=== PATIENT | female | born 1960 | race Caucasian/White ===

== ENCOUNTER 2017-03-10 12:23 | Inpatient (IN) ==
[2017-03-10] MEDS ORDERED: 0.9 % Sodium Chloride 1,000 ML IVC ONE ×2 (12:39→14:31)
[2017-03-10] MEDS ORDERED: Ondansetron 4 MG/2 ML VIAL IVP ONE ×2 (12:39→14:32)
[2017-03-10 12:51] LABS: Basophils # 0.1 K/mcL (0.0-0.2); Basophils % 0.4 %; Eosinophils % 0.1 %; Hematocrit 52.5 % (35.3-44.9); Hemoglobin 17.8 g/dL (11.5-15.4); Immature Granulocytes % 0.9 % (0-4); Mean Corpuscular HGB Conc 33.9 g/dL (31.6-35.5); Mean Corpuscular Volume 94.3 fL (83.0-100.0); Mean Platelet Volume 9.4 fL (9.4-12.4); Monocytes # 2.9 K/mcL (0.0-1.3); Monocytes % 11.8 %; Neutrophils # 20.4 K/mcL (1.6-8.9); Platelet Count 387 K/mcL (140-400); Red Blood Count 5.57 M/mcL (3.82-4.97); Red Cell Distribution Width 12.7 % (11.5-14.5); Segmented Neutrophils % 82.8 %
[2017-03-10 12:58] LABS: Prothrombin Time 10.5 Seconds (9.4-12.1)
[2017-03-10 13:06] LABS: Alanine Aminotransferase 20 Units/L (0-55); Albumin 3.9 g/dL (3.5-5.0); Albumin/Globulin Ratio 1.3 (1.1-2.2); Alkaline Phosphatase 97 Units/L (38-126); Aspartate Amino Transferase 21 Units/L (5-34); BUN/Creatinine Ratio 17 (6-26); Bilirubin,Total 0.7 mg/dL (0.2-1.2); Blood Urea Nitrogen 15 mg/dL (7-20); Calcium 10.6 mg/dL (8.6-10.8); Carbon Dioxide 24 mEq/L (19-29); Chloride 106 mEq/L (98-109); Globulin 3.1 g/dL (2.4-3.5); Glucose 147 mg/dL (70-99); Lipase 18 Units/L (8-78); Osmolality,Calculated 294 (280-300); Potassium 4.7 mEq/L (3.5-4.5); Sodium 140 mEq/L (136-145); eGFR For African Americans > 60 (> 60); eGFR For Non-African Americans > 60 (> 60)
--- NOTE | 2017-03-10 13:40 | Emergency Department Note ---
Disposition Clinical Impression: Abdominal pain Disposition: Admitted As Inpatient Referrals: NO,PCP [Primary Care Provider] - Forms: Work/School Release, ED Satisfaction Letter Abdominal Pain HPI - General Chief Complaint: ED Abdominal Pain Stated Complaint: ABD pain/GI bleed/N/V Time Seen by Provider: 03/10/17 12:26 Source: patient Nursing Notes Reviewed: Yes Vital Signs Reviewed: Yes - History of Present Illness HPI Narrative: Patient complains of abdominal pain has been going on for a few days. Patient also notes some blood from her stool. Patient states she does have a history of ischemic colitis and was diagnosed about a year ago. Patient states she has has cramping diffuse pain. Patient denies fever or chills denies shortness of breath. Patient denies numbness and tingling associated. Patient denies diarrhea. Pain Scale: 9 - Related Data Home Medications Medication Instructions Recorded Confirmed Atorvastatin [Lipitor] 10 mg PO QPM 06/20/16 07/24/16 Cyclobenzaprine [Flexeril] 10 tab PO BID PRN 06/20/16 07/24/16 Levothyroxine [Synthroid] 50 mcg PO QPM 06/20/16 07/24/16 Metoprolol XL (24 HR) Succ [Toprol 12.5 mg PO QPM 06/20/16 07/24/16 Xl] OxyCODONE/APAP 5/325 [Percocet 1 tab PO QPM PRN 06/20/16 07/24/16 5/325 MG] Pregabalin [Lyrica] 75 mg PO QPM 06/20/16 07/24/16 Ranitidine HCl [Heartburn Relief] 150 mg PO QPM 06/20/16 07/24/16 SUMAtriptan [Imitrex] 50 mg PO DAILY PRN 06/20/16 07/24/16 Aspirin [Lo-Dose Aspirin EC] 81 mg PO QPM 07/24/16 07/24/16 Calcium Carbonate [Calcium] 500 mg PO QAM 07/24/16 07/24/16 Carvedilol [Coreg] 3.125 mg PO QPM 07/24/16 07/24/16 Ergocalciferol (VITAMIN D2) 50,000 unit PO QWEEK 07/24/16 07/24/16 [Vitamin D2 (50,000 UNIT)] Spironolactone [Aldactone] 12.5 mg PO QPM 07/24/16 07/24/16 Allergies Allergy/AdvReac Type Severity Reaction Status Date / Time Sulfa (Sulfonamide Allergy See Verified 07/24/16 07:12 Antibiotics) Comments All systems ED: reviewed and negative except as stated. Abdominal Pain PMH - Past Medical History Medical history: Reports: arthritis, cardiomyopathy, COPD, migraine Female Surgical History: Reports: pacemaker/AICD, other Psychiatric history: Reports: no psych history - Social History Smoking status: Former smoker Alcohol use: Reports: none Drug use: Reports: none Physical Exam - General Limitations: no limitations General appearance: alert - Head Head exam: atraumatic, normocephalic, normal inspection - Eye Eye exam: Present: normal appearance, PERRL, EOMI - ENT ENT exam: normal exam, normal oropharynx, mucous membranes moist - Neck Neck exam: Present: normal inspection, full ROM, trachea midline - Chest Chest inspection: Present: normal inspection, symmetric chest wall rise - Respiratory Respiratory exam: Present: normal lung sounds bilaterally - Cardiovascular Cardiovascular exam: Present: regular rate, normal rhythm, normal heart sounds - Abdominal Exam Abdominal exam: Present: soft, tenderness Abdominal tenderness: Present: diffuse - Extremities Exam Extremities exam: Present: normal inspection, full ROM. Absent: tenderness, pedal edema - Back Exam Back exam: Present: normal inspection, full ROM. Absent: tenderness - Neurological Exam Neurological exam: Present: alert, oriented X3 - Psychiatric Psychiatric exam: Present: normal affect, normal mood - Skin Skin exam: Present: warm, dry, intact, normal color Course Vital Signs Temperature 97.6 F 03/10/17 12:25 Pulse Rate 117 03/10/17 12:25 Respiratory Rate 16 03/10/17 12:25 Blood Pressure 139/98 03/10/17 12:25 O2 Sat by Pulse Oximetry 93 03/10/17 12:25 Temperature 97.6 F 03/10/17 12:25 Pulse Rate 128 03/10/17 14:40 Respiratory Rate 16 03/10/17 14:40 Blood Pressure 108/96 03/10/17 14:40 O2 Sat by Pulse Oximetry 95 03/10/17 14:40 Oxygen Delivery Oxygen Delivery Room Air Abdominal Pain - Differential Diagnosis Differential Diagnosis: Likely: abdominal pain non-specific, colonic obstruction , diverticulitis, gastroenteritis, ischemic bowel, pancreatitis - Lab Data Lab results reviewed: Yes I reviewed the patient's lab results. Result diagrams: 03/10/17 12:38 03/10/17 12:38 Lab Results 03/10/17 03/10/17 03/10/17 Range/Units 12:38 12:38 12:38 WBC 24.6 H (4.3-11.1) K/mcL RBC 5.57 H (3.82-4.97) M/mcL Hgb 17.8 H (11.5-15.4) g/dL Hct 52.5 H (35.3-44.9) % MCV 94.3 (83.0-100.0) fL MCH 32.0 (28.0-33.3) pg MCHC 33.9 (31.6-35.5) g/dL RDW 12.7 (11.5-14.5) % Plt Count 387 (140-400) K/mcL MPV 9.4 (9.4-12.4) fL Immature Gran % 0.9 (0-4) % Seg Neutrophils % 82.8 % Lymphocytes % 4.0 % Monocytes % 11.8 % Eosinophils % 0.1 % Basophils % 0.4 % Neutrophils # 20.4 H (1.6-8.9) K/mcL Lymphocytes # 1.0 (0.6-4.6) K/mcL Monocytes # 2.9 H (0.0-1.3) K/mcL Eosinophils # 0.0 (0.0-0.6) K/mcL Basophils # 0.1 (0.0-0.2) K/mcL PT 10.5 (9.4-12.1) Seconds INR 1.0 Sodium 140 (136-145) mEq/L Potassium 4.7 H (3.5-4.5) mEq/L Chloride 106 (98-109) mEq/L Carbon Dioxide 24 (19-29) mEq/L BUN 15 (7-20) mg/dL Creatinine 0.90 (0.57-1.11) mg/dL Est GFR ( Amer) > 60 (> 60) Est GFR (Non-Af Amer) > 60 (> 60) BUN/Creatinine Ratio 17 (6-26) Glucose 147 H (70-99) mg/dL Calculated Osmolality 294 (280-300) Lactic Acid (0.5-2.2) mmol/L Calcium 10.6 (8.6-10.8) mg/dL Total Bilirubin 0.7 (0.2-1.2) mg/dL AST 21 (5-34) Units/L ALT 20 (0-55) Units/L Alkaline Phosphatase 97 (38-126) Units/L Troponin I (0-0.03) ng/mL Serum Total Protein 7.0 (6.0-8.3) g/dL Albumin 3.9 (3.5-5.0) g/dL Globulin 3.1 (2.4-3.5) g/dL Albumin/Globulin Ratio 1.3 (1.1-2.2) Lipase 18 (8-78) Units/L 03/10/17 03/10/17 Range/Units 12:38 12:38 WBC (4.3-11.1) K/mcL RBC (3.82-4.97) M/mcL Hgb (11.5-15.4) g/dL Hct (35.3-44.9) % MCV (83.0-100.0) fL MCH (28.0-33.3) pg MCHC (31.6-35.5) g/dL RDW (11.5-14.5) % Plt Count (140-400) K/mcL MPV (9.4-12.4) fL Immature Gran % (0-4) % Seg Neutrophils % % Lymphocytes % % Monocytes % % Eosinophils % % Basophils % % Neutrophils # (1.6-8.9) K/mcL Lymphocytes # (0.6-4.6) K/mcL Monocytes # (0.0-1.3) K/mcL Eosinophils # (0.0-0.6) K/mcL Basophils # (0.0-0.2) K/mcL PT (9.4-12.1) Seconds INR Sodium (136-145) mEq/L Potassium (3.5-4.5) mEq/L Chloride (98-109) mEq/L Carbon Dioxide (19-29) mEq/L BUN (7-20) mg/dL Creatinine (0.57-1.11) mg/dL Est GFR ( Amer) (> 60) Est GFR (Non-Af Amer) (> 60) BUN/Creatinine Ratio (6-26) Glucose (70-99) mg/dL Calculated Osmolality (280-300) Lactic Acid 1.5 (0.5-2.2) mmol/L Calcium (8.6-10.8) mg/dL Total Bilirubin (0.2-1.2) mg/dL AST (5-34) Units/L ALT (0-55) Units/L Alkaline Phosphatase (38-126) Units/L Troponin I 0.00 (0-0.03) ng/mL Serum Total Protein (6.0-8.3) g/dL Albumin (3.5-5.0) g/dL Globulin (2.4-3.5) g/dL Albumin/Globulin Ratio (1.1-2.2) Lipase (8-78) Units/L - Radiology Data Radiology results reviewed: Yes I reviewed the patient's radiology results. Abdomen/Pelvis CT 03/10/17 12:37 IMPRESSION: Diffuse mucosal thickening involving the descending colon with mild surrounding pericolonic inflammation. There is additional colonic wall thickening involving the proximal sigmoid colon as well as the transverse colon. These changes are largely stable from previous exam in 2016. Inflammatory bowel disease is raised as a possibility. Recurrent infectious colitis is in the differential diagnosis. Colonoscopy may be considered. Scarring within the left kidney. Small 9 mm left adrenal adenoma. Hysterectomy and appendectomy. D/ / 03/10/2017 14:03:45 Sheldon Chappell MD / gurpreet Interpreting Provider: Sheldon Chappell MD Critical Care Time Total Critical Care Time: 30 Attestation: Critical care performed: Time is exclusive of separately billable procedures. Time includes: direct patient care, patient reassessment, coordination of patient care, interpretation of data (laboratory data, radiology data, and respiratory data), review of patient's medical records, medical consultation and documentation of patient care. Procedures included in critical care time: Procedures excluded from critical care time:
[2017-03-10] MEDS ORDERED: *HR* HYDROmorphone (PF) 1 MG/ML SYRINGE IVP ONE (14:31)
[2017-03-10] MEDS ORDERED: MetroNIDAZOLE 500 MG/100 ML 500 MG/100 ML BAG IVPB ONE (14:46)
[2017-03-10] MEDS ORDERED: Naloxone 0.4 MG/ML INJ IVP PRN (16:33)
[2017-03-10] MEDS ORDERED: Ondansetron 4 MG/2 ML VIAL IVP PRN (16:34)
--- NOTE | 2017-03-10 16:45 | Internal Med History&Physical ---
<Opal Cartagena - Last Filed: 03/10/17 17:42> Date of Encounter: 03/10/17 Time of Encounter: 16:40 Assessment and Plan (1) Infectious colitis Current visit: Yes Status: Acute 1 patient has a history of ischemic colitis-has been experiencing abdominal cramping nausea vomiting diarrhea blood from her rectum. No fevers elevated white count at 24.6. Blood cultures have been obtained we will continue with Cipro and Flagyl 2 gentle IV fluids 3 Dilaudid and Zofran for pain and nausea 4 clear liquid diet advance as tolerated (2) COPD (chronic obstructive pulmonary disease) Current visit: No Status: Chronic 1patient states she receno. We will give oxygen as needed titrating maintain SPO2 greater than 92% 2 bronchodilators as needed Qualifiers: COPD type: emphysema Emphysema type: unspecified Qualified Code(s): J43.9 - Emphysema, unspecified (3) Cardiomyopathy Current visit: No Status: Chronic patient has history of nonischemic EF is 30-35%.e will continue patient Qualifiers: Cardiomyopathy type: unspecified Qualified Code(s): I42.9 - Cardiomyopathy , unspecified (4) CAD (coronary artery disease) Current visit: Yes Status: Chronic 1 continue with beta corey aspirin and statin Qualifiers: Coronary Disease-Associated Artery/Lesion type: [place] artery [place] vs. transplanted heart: [place] heart Associated angina: without angina Qualified Code(s): I25.10 - Atherosclerotic heart disease of [place] coronary artery without angina pectoris (5) DVT prophylaxis Current visit: Yes Status: Acute SCDs Internal Medicine - H&P: HPI Chief complaint: Rectal bleeding abd pain Admitted From: Emergency Dept Plans for Post Hospital Care: Home History of present illness: Ms. Miller is a 56 year old female past medical history COPD systolic heart failure with AICD pacemaker GERD [place] ischemic colitis melanoma. According to the patient she has a history of ischemic colitis and she occasionally has abdominal pain and rectal bleeding approximately once a month. It resolves on its own. At approximately 4:30 AM patient awoke experiencing abdominal cramping nausea vomiting with dry heaves she had some diarrhea and then began to have bleeding from her rectum. She she denies any fevers or chest pain cough shortness of breath she does admit chills and diaphoresis during the vomiting episodes. She presented to the ER with the above complaints. According to ER records and lab work revealed leukocytosis 24.6 patient was afebrile presentation chemistry was unremarkable troponin was [address] of abdomen did show stable changes inflammatory but bowel disease recurrent infectious colitis possibility. Blood cultures were obtained patient was given antiemetics and pain medication as well as IV fluids. She has been admitted for further workup evaluation. Presently patient does not appear to be any respiratory distress she denies any chest pain or shortness of breath at this time until clear heart sounds S1-S2 with no musculoskeletal murmurs noted abdomen is soft nontender to palpation no pedal edema. During assessment patient admitted she has been in her usual state of health however she has lost approximately 10 pounds in the last month unintentionally. She is here today mostly about this time I reviewed this case with Dr Taylor who agrees with plan Past Med Surg Social Fam HX - Past Medical History Medical history: arthritis, cardiomyopathy, GI bleed, migraine Psychiatric history: no psych history - Past Surgical History Surgical History: appendectomy, herniorrhaphy, hysterectomy, pacemaker/AICD, ROCK /BSO - Social History Smoking Status: Former smoker Smokeless Tobacco Status: No Alcohol use: none Drug use: none - Family History Mother Living Status: Hx Family Cardiac Disorders: Yes Hx Family Cancer: Yes (lymphoma stage 4) Father Living Status: Hx Family Cancer: Yes (Lung Ca) Sister Living Status: Still Living Hx Family Cancer: Yes (Breast Ca) Internal Medicine - H&P: Meds Atorvastatin [Lipitor] 10 mg PO QPM 06/20/16 [History] Cyclobenzaprine [Flexeril] 10 tab PO BID PRN 06/20/16 [History] Levothyroxine [Synthroid] 50 mcg PO QPM 06/20/16 [History] Metoprolol XL (24 HR) Succ [Toprol Xl] 25 mg PO QPM 06/20/16 [History] OxyCODONE/APAP 5/325 [Percocet 5/325 MG] 1 tab PO QPM PRN 06/20/16 [History] Pregabalin [Lyrica] 75 mg PO QPM 06/20/16 [History] Ranitidine HCl [Heartburn Relief] 150 mg PO QPM 06/20/16 [History] SUMAtriptan [Imitrex] 50 mg PO DAILY PRN 06/20/16 [History] Aspirin [Lo-Dose Aspirin EC] 81 mg PO QPM 07/24/16 [History] Calcium Carbonate [Calcium] 500 mg PO QPM 07/24/16 [History] Ergocalciferol (VITAMIN D2) [Vitamin D2 (50,000 UNIT)] 50,000 unit PO QWEEK 03/04 [History] Allergies Sulfa (Sulfonamide Antibiotics) Allergy (Verified 07/24/16 07:12) See Comments PATIENT STATES THIS WAS A CHILDHOOD ALLERGY AND IS UNSURE OF THE REACTION* All Systems PM: A 10-system review of systems was performed and is negative for pertinent findings except as documented above in the HPI. - Constitutional Constitutional: weight loss - EENT Nose, mouth and throat: no dysphagia, no nasal discharge, no neck pain, no sore throat - Cardiovascular Cardiovascular ROS IM: no chest pain, no diaphoresis, no dyspnea, no lightheadedness, no palpitations, no syncope - Respiratory Respiratory: no cough, no dyspnea, no wheezing, no excessive phlegm production - Gastrointestinal Gastrointestinal: abdominal pain, cramping Additional comments: bleeding from rectum - Genitourinary Genitourinary: no change in urinary stream, no dysuria, no flank pain, no hematuria - Musculoskeletal Musculoskeletal ROS IM: no numbness, no tingling - Integumentary Integumentary IM: no rash, no unusual bruising - Neurological Neurological ROS: no confusion, no convulsions, no focal weakness, no numbness, no tingling, no tremor(s) - Constitutional Vitals: Temp Pulse Resp BP Pulse Ox 97.6 F 128 16 123/86 95 03/10/17 12:25 03/10/17 14:40 03/10/17 15:03 03/10/17 15:03 03/10/17 14:40 General appearance: Present: A&O X 3, answers questions appropriately - Head Head exam: Present: atraumatic, normocephalic - Eye Eye exam: Present: PERRL, conjuntiva pink, sclera anicteric Pupils: Present: PERRL - Neck Neck exam general surgery: Present: supple, trachea midline. Absent: lymphadenopathy - Respiratory Respiratory exam: Present: CTAB. Absent: accessory muscle use, rales, rhonchi, wheezes - Cardiovascular Cardiovascular exam: Present: RRR, +S1, +S2. Absent: diastolic murmur, gallop, rubs, systolic murmur - GI/Abdominal GI/Abdominal exam: Present: normal bowel sounds, soft, no peritoneal signs. Absent: distended, tenderness - Extremities Exam Extremities exam: Present: warm, radial pulses palpable and symetrical. Absent : calf tenderness, cyanotic, pedal edema - Neurological Exam Neurological exam: Present: CN II-XII intact, oriented X3, no focal deficits. Absent: pronater drift, facial droop, speech deficit - Skin Skin exam: Present: dry, intact Internal Med - H&P Results - Labs CBC & Chem 7: 03/10/17 12:38 03/10/17 12:38 - Diagnostic Studies Other Images Additional comments: Abdomen/Pelvis CT 03/10/17 12:37 IMPRESSION: Diffuse mucosal thickening involving the descending colon with mild surrounding pericolonic inflammation. There is additional colonic wall thickening involving the proximal sigmoid colon as well as the transverse colon. These changes are largely stable from previous exam in 2016. Inflammatory bowel disease is raised as a possibility. Recurrent infectious colitis is in the differential diagnosis. Colonoscopy may be considered. Scarring within the left kidney. Small 9 mm left adrenal adenoma. Hysterectomy and appendectomy. D/ / 03/10/2017 14:03:45 Sheldon Chappell MD / gurpreet Interpreting Provider: Sheldon Chappell MD <Indio Taylor - Last Filed: 03/10/17 18:06> Date of Encounter: 03/10/17 Internal Medicine - H&P: HPI History of present illness: Ms. Miller is a 56 year old female All Systems PM: A 10-system review of systems was performed and is negative for pertinent findings except as documented above in the HPI. - Constitutional Vitals: Temp Pulse Resp BP Pulse Ox 98.1 F 105 16 131/78 97 03/10/17 16:45 03/10/17 16:45 03/10/17 16:45 03/10/17 16:45 03/10/17 16:45 Internal Med - H&P Results - Labs CBC & Chem 7: 03/10/17 12:38 03/10/17 12:38 - Attending Attestation I examined this patient and my medical decision-making was reviewed with Dr. Cartagena. I agree with the documented findings, disposition and treatment plan as described except to the extent set forth below. 56 yo with history of ischemic colitis and nonischemic cardiomyopathy presented to the emergency room due to nausea, vomiting, abdominal pain and some blood in her stool. On exam, abdomen is nontender and nondistended. It is soft. Clear breath sounds bilaterally. Labs reviewed and reveals leukocytosis and hemoconcentration. Outpatient records from cardiology reviewed which revealed that the patient has nonischemic cardiomyopathy and had an AICD placed for primary prevention. 1. Ischemic colitis-patient will be admitted to inpatient status. Expected to be in the hospital at least overnight. High risk due to risk of septic shock and worsening ischemic colitis which may require surgical intervention. Expected discharge disposition is to home. Conservative management with intravenous fluids with gentle hydration given her congestive heart failure. Antibiotics as the patient likely has bacterial translocation due to ischemic colitis. Continue statin and antiplatelet therapy. 2. Chronic systolic congestive heart failure due to nonischemic cardiaomyopathy 3. COPD TREVOR ChapaBS
[2017-03-10] MEDS ORDERED: Albuterol 2.5 MG/3 ML NEBULIZER IH PRN (17:43)
[2017-03-10] MEDS: MetroNIDAZOLE 500 MG/100 ML 500 MG/100 ML BAG IVPB SCH (18:21)
[2017-03-10] MEDS: 0.9 % Sodium Chloride 1,000 ML IVC SCH (18:21)
[2017-03-10] MEDS: *HR* HYDROmorphone (PF) 1 MG/ML SYRINGE IVP PRN (20:15)
[2017-03-11] MEDS: MetroNIDAZOLE 500 MG/100 ML 500 MG/100 ML BAG IVPB SCH ×5 (00:10→23:07)
[2017-03-11] MEDS: *HR* HYDROmorphone (PF) 1 MG/ML SYRINGE IVP PRN ×6 (00:19→23:07)
[2017-03-11 05:43] LABS: Basophils # 0.1 K/mcL (0.0-0.2); Basophils % 0.5 %; Eosinophils # 0.3 K/mcL (0.0-0.6); Eosinophils % 2.3 %; Hematocrit 43.1 % (35.3-44.9); Immature Granulocytes % 0.4 % (0-4); Lymphocytes % 21.1 %; Mean Corpuscular HGB Conc 32.7 g/dL (31.6-35.5); Mean Corpuscular Hemoglobin 30.9 pg (28.0-33.3); Mean Corpuscular Volume 94.5 fL (83.0-100.0); Mean Platelet Volume 9.9 fL (9.4-12.4); Monocytes # 1.7 K/mcL (0.0-1.3); Monocytes % 12.1 %; Platelet Count 317 K/mcL (140-400); Red Blood Count 4.56 M/mcL (3.82-4.97); Red Cell Distribution Width 12.9 % (11.5-14.5); Segmented Neutrophils % 63.6 %
[2017-03-11 05:45] LABS: Hemoglobin 14.1 g/dL (11.5-15.4)
[2017-03-11 05:58] LABS: BUN/Creatinine Ratio 11 (6-26); Blood Urea Nitrogen 8 mg/dL (7-20); Carbon Dioxide 25 mEq/L (19-29); Chloride 108 mEq/L (98-109); Glucose 99 mg/dL (70-99); Osmolality,Calculated 288 (280-300); Potassium 4.1 mEq/L (3.5-4.5); Sodium 140 mEq/L (136-145); eGFR For African Americans > 60 (> 60); eGFR For Non-African Americans > 60 (> 60)
[2017-03-11 06:02] LABS: Calcium 8.9 mg/dL (8.6-10.8)
--- NOTE | 2017-03-11 15:25 | Internal Med Progress Note ---
Date of Encounter: 03/11/17 Time of Encounter: 09:00 - Assessment and plan (1) Infectious colitis Current Visit: Yes Status: Acute Assessment and plan: will continue IV fluid, IV Cipro and Flagyl. Advance diet as tolerated (2) Abdominal pain Current Visit: Yes Status: Acute Assessment and plan: Most likely due to colitis. Continue IV fluid, and the symptomatic treatment. Qualifiers: Abdominal location: periumbilical Qualified Code(s): R10.33 - Periumbilical pain (3) COPD (chronic obstructive pulmonary disease) Current Visit: No Status: Chronic Assessment and plan: Continue home medication. Stable Qualifiers: COPD type: emphysema Emphysema type: unspecified Qualified Code(s): J43.9 - Emphysema, unspecified (4) Cardiomyopathy Current Visit: No Status: Chronic Assessment and plan: EF 30-35%. no signs of exacerbation. Continue home medication Qualifiers: Cardiomyopathy type: unspecified Qualified Code(s): I42.9 - Cardiomyopathy , unspecified (5) CAD (coronary artery disease) Current Visit: Yes Status: Chronic Assessment and plan: Continue home medication aspirin, beta corey, and statin. Qualifiers: Coronary Disease-Associated Artery/Lesion type: [place] artery [place] vs. transplanted heart: [place] heart Associated angina: without angina Qualified Code(s): I25.10 - Atherosclerotic heart disease of [place] coronary artery without angina pectoris (6) DVT prophylaxis Current Visit: No Status: Acute Assessment and plan: EPCD - Time Spent With Patient 25 - 35 minutes - Subjective Interval history: patient is a 56-year-old female with history of ischemic colitis admitted for acute abdominal pain and bloody diarrhea. her past medical history is significant for ardiomyopathy, GI bleeding. Patient was seen and examined. Much less abdominal pain No further bloody diarrhea. vital signs stable. hemoglobin stable. patient had 3 colonoscopy in last 12 months. we will continue IV fluid,IV antibiotic, and advance diet as tolerated. - Constitutional Vitals: Temp Pulse Resp BP Pulse Ox 98.5 F 99 16 112/74 92 03/11/17 11:06 03/11/17 11:06 03/11/17 11:06 03/11/17 11:06 03/11/17 11:06 General appearance: Present: A&O X 3, answers questions appropriately - Head Head exam: Present: atraumatic, normocephalic - Eye Eye exam: Present: PERRL, conjuntiva pink, sclera anicteric Pupils: Present: PERRL - Neck Neck exam general surgery: Present: supple, trachea midline. Absent: lymphadenopathy - Respiratory Respiratory exam: Present: CTAB. Absent: accessory muscle use, rales, rhonchi, wheezes - Cardiovascular Cardiovascular exam: Present: RRR, +S1, +S2. Absent: diastolic murmur, gallop, rubs, systolic murmur - GI/Abdominal GI/Abdominal exam: Present: normal bowel sounds, soft, tenderness (mild abdominal tenderness without guarding or rebound), no peritoneal signs. Absent : distended - Extremities Exam Extremities exam: Present: warm, radial pulses palpable and symetrical. Absent : calf tenderness, cyanotic, pedal edema - Neurological Exam Neurological exam: Present: CN II-XII intact, oriented X3, no focal deficits. Absent: pronater drift, facial droop, speech deficit - Skin Skin exam: Present: dry, intact Internal Medicine: Result - Labs CBC & Chem 7: 03/11/17 04:38 03/11/17 04:38 Labs: Short CBC 03/11/17 Range/Units 04:38 WBC 14.2 H (4.3-11.1) K/mcL Hgb 14.1 D (11.5-15.4) g/dL Hct 43.1 (35.3-44.9) % Plt Count 317 (140-400) K/mcL Neutrophils # 9.0 H (1.6-8.9) K/mcL BMP 03/11/17 04:38 Sodium 140 Potassium 4.1 Chloride 108 Carbon Dioxide 25 BUN 8 Creatinine 0.76 Glucose 99 Calcium 8.9 D - ABG Interpretation ABG results: PT/INR, D-dimer PT 10.5 Seconds (9.4-12.1) 03/10/17 12:38 Consult Discharge Plan - Plan Referrals: Verónica New CNP [Primary Care Provider] -
[2017-03-11] MEDS ORDERED: SUMAtriptan succinate 50 MG TABLET PO PRN (15:32)
[2017-03-11] MEDS: 0.9 % Sodium Chloride 1,000 ML IVC SCH (17:42)
[2017-03-11] MEDS ORDERED: Pregabalin 75 MG CAPSULE PO SCH (18:00)
[2017-03-11] MEDS ORDERED: Aspirin Enteric Coated 81 MG Tablet PO SCH (18:00)
[2017-03-11] MEDS ORDERED: Famotidine 20 MG TABLET PO SCH (18:00)
[2017-03-11] MEDS ORDERED: Metoprolol XL (24 HR) Succ 25 MG TAB.ER.24H PO SCH (18:00)
[2017-03-12 05:23] LABS: Basophils # 0.1 K/mcL (0.0-0.2); Basophils % 0.7 %; Eosinophils # 0.7 K/mcL (0.0-0.6); Eosinophils % 7.3 %; Hematocrit 41.6 % (35.3-44.9); Hemoglobin 13.3 g/dL (11.5-15.4); Immature Granulocytes % 0.3 % (0-4); Lymphocytes # 2.1 K/mcL (0.6-4.6); Lymphocytes % 21.9 %; Mean Corpuscular Hemoglobin 30.1 pg (28.0-33.3); Mean Corpuscular Volume 94.1 fL (83.0-100.0); Mean Platelet Volume 9.2 fL (9.4-12.4); Monocytes # 1.2 K/mcL (0.0-1.3); Monocytes % 12.4 %; Neutrophils # 5.6 K/mcL (1.6-8.9); Platelet Count 293 K/mcL (140-400); Red Blood Count 4.42 M/mcL (3.82-4.97); Red Cell Distribution Width 12.6 % (11.5-14.5); Segmented Neutrophils % 57.4 %
[2017-03-12] MEDS: MetroNIDAZOLE 500 MG/100 ML 500 MG/100 ML BAG IVPB SCH (05:33)
[2017-03-12] MEDS: *HR* HYDROmorphone (PF) 1 MG/ML SYRINGE IVP PRN (05:34)
[2017-03-12 05:45] LABS: BUN/Creatinine Ratio 6 (6-26); Blood Urea Nitrogen 4 mg/dL (7-20); Carbon Dioxide 25 mEq/L (19-29); Chloride 108 mEq/L (98-109); Glucose 97 mg/dL (70-99); Osmolality,Calculated 287 (280-300); Potassium 4.2 mEq/L (3.5-4.5); Sodium 140 mEq/L (136-145); eGFR For African Americans > 60 (> 60); eGFR For Non-African Americans > 60 (> 60)
[2017-03-12 07:02] VITALS: BP 126/74
--- NOTE | 2017-03-12 10:55 | Discharge Summary ---
Date of Encounter: 03/12/17 Time of Encounter: 09:00 - Discharge Diagnosis (1) Infectious colitis Priority: Primary Status: Acute (2) Abdominal pain Priority: Primary Status: Acute Qualifiers: Abdominal location: periumbilical Qualified Code(s): R10.33 - Periumbilical pain (3) COPD (chronic obstructive pulmonary disease) Priority: Secondary Status: Chronic Qualifiers: COPD type: emphysema Emphysema type: unspecified Qualified Code(s): J43.9 - Emphysema, unspecified (4) Cardiomyopathy Priority: Secondary Status: Chronic Qualifiers: Cardiomyopathy type: unspecified Qualified Code(s): I42.9 - Cardiomyopathy , unspecified (5) CAD (coronary artery disease) Priority: Secondary Status: Chronic Qualifiers: Coronary Disease-Associated Artery/Lesion type: [place] artery [place] vs. transplanted heart: [place] heart Associated angina: without angina Qualified Code(s): I25.10 - Atherosclerotic heart disease of [place] coronary artery without angina pectoris (6) DVT prophylaxis Priority: Secondary Status: Acute - Discharge Medications Home Medications: Atorvastatin [Lipitor] 10 mg PO QPM 06/20/16 [History] Cyclobenzaprine [Flexeril] 10 tab PO BID PRN 06/20/16 [History] Levothyroxine [Synthroid] 50 mcg PO QPM 06/20/16 [History] Metoprolol XL (24 HR) Succ [Toprol Xl] 25 mg PO QPM 06/20/16 [History] OxyCODONE/APAP 5/325 [Percocet 5/325 MG] 1 tab PO QPM PRN 06/20/16 [History] Pregabalin [Lyrica] 75 mg PO QPM 06/20/16 [History] Ranitidine HCl [Heartburn Relief] 150 mg PO QPM 06/20/16 [History] SUMAtriptan [Imitrex] 50 mg PO DAILY PRN 06/20/16 [History] Aspirin [Lo-Dose Aspirin EC] 81 mg PO QPM 07/24/16 [History] Calcium Carbonate [Calcium] 500 mg PO QPM 07/24/16 [History] Ergocalciferol (VITAMIN D2) [Vitamin D2 (50,000 UNIT)] 50,000 unit PO QWEEK 03/04 [History] Ciprofloxacin HCl [Cipro] 500 mg PO BID #10 tablet 03/12/17 [Rx] metroNIDAZOLE [Flagyl] 500 mg PO TID #15 tablet 03/12/17 [Rx] Allergies/Adverse Reactions: Allergies Sulfa (Sulfonamide Antibiotics) Allergy (Verified 07/24/16 07:12) See Comments PATIENT STATES THIS WAS A CHILDHOOD ALLERGY AND IS UNSURE OF THE REACTION* - Notes to Outpatient Provider Continues by mouth Cipro and Flagyl for 5 more days. Date of admission: 03/10/17 16:33 Primary care physician: Verónica New CNP Discharging clinician: Rosamaria [place] Anticipated date of discharge: 03/12/17 - Patient Status Disposition: Home, Self-Care Condition: Good Functional capacity at discharge: independent ambulation Overall status at discharge: patient is back to baseline - Discharge Instructions Follow Up With: Verónica New CNP [Primary Care Provider] - (Office will call patient at home with date and time of appt. Thank you) - Diet and Activity Activity: increase activity as tolerated Diet: advance to your usual diet Interval History: Ms. Miller is a 56 year old female past medical history COPD systolic heart failure with AICD pacemaker GERD [place] ischemic colitis melanoma. According to the patient she has a history of ischemic colitis and she occasionally has abdominal pain and rectal bleeding approximately once a month. It resolves on its own. At approximately 4:30 AM patient awoke experiencing abdominal cramping nausea vomiting with dry heaves she had some diarrhea and then began to have bleeding from her rectum. She she denies any fevers or chest pain cough shortness of breath she does admit chills and diaphoresis during the vomiting episodes. She presented to the ER with the above complaints. According to ER records and lab work revealed leukocytosis 24.6 patient was afebrile presentation chemistry was unremarkable troponin was [address] of abdomen did show stable changes inflammatory but bowel disease recurrent infectious colitis possibility. Blood cultures were obtained patient was given antiemetics and pain medication as well as IV fluids. She has been admitted for further workup evaluation. Presently patient does not appear to be any respiratory distress she denies any chest pain or shortness of breath at this time until clear heart sounds S1-S2 with no musculoskeletal murmurs noted abdomen is soft nontender to palpation no pedal edema. During assessment patient admitted she has been in her usual state of health however she has lost approximately 10 pounds in the last month unintentionally. Hospital course: Ms. Miller is a 56 year old female admitted for diarrhea and abdominal pain. She was diagnosed as infectious colitis. She was treated with nothing by mouth, IV fluid, and IV Cipro and Flagyl. After treatment of her abdominal pain has resolved, diarrhea has stopped. Her diet has been advanced to full liquid and she tolerated well. Patient with discharge home with by mouth antibiotic. Her diet will advanced as tolerated gradually, patient was educated, and that she knows how to advance diet. I saw and examined the patient today. She is awake alert, oriented 3. No abdominal pain or diarrhea. Patient had colonoscopy already recently. Her vital signs are stable. Patient is stable to discharge home. - Time Spent with Patient Total time spent providing and/or coordinating discharge services: 40 minutes Greater than 30 minutes - Constitutional Vitals: Temp Pulse Resp BP Pulse Ox 98.1 F 73 12 126/74 93 03/12/17 07:01 03/12/17 07:01 03/12/17 07:01 03/12/17 07:01 03/12/17 08:16 General appearance: Present: A&O X 3, answers questions appropriately - Head Head exam: Present: atraumatic, normocephalic - Eye Eye exam: Present: PERRL, conjuntiva pink, sclera anicteric Pupils: Present: PERRL - Neck Neck exam general surgery: Present: supple, trachea midline. Absent: lymphadenopathy - Respiratory Respiratory exam: Present: CTAB. Absent: accessory muscle use, rales, rhonchi, wheezes - Cardiovascular Cardiovascular exam: Present: RRR, +S1, +S2. Absent: diastolic murmur, gallop, rubs, systolic murmur - GI/Abdominal GI/Abdominal exam: Present: normal bowel sounds, soft, no peritoneal signs. Absent: distended, tenderness - Extremities Exam Extremities exam: Present: warm, radial pulses palpable and symetrical. Absent : calf tenderness, cyanotic, pedal edema - Neurological Exam Neurological exam: Present: CN II-XII intact, oriented X3, no focal deficits. Absent: pronater drift, facial droop, speech deficit - Skin Skin exam: Present: dry, intact
== END 2017-03-12 11:22 | disposition home or self-care (01) | DRG 392 ==
LOC: EMEROO 12:23 → 3ANU 12:23 → SUATTDRO 16:33
PROVIDERS: ADMIT Internal Medicine Sleep Medicine; ATTEND Internal Medicine